=== PATIENT | male | born 1975 | race Caucasian/White ===

== ENCOUNTER 2018-03-15 02:28 | Emergency (ER) | payer OTHER ==
[2018-03-15] MEDS: ARIPIPRAZOLE 5 MG TAB PO (04:39)
== END 2018-03-15 04:46 | disposition home or self-care (01) ==
LOC: E/R 02:28
DX: T76.11XA Adult physical abuse, suspected, initial encounter (principal); R40.2142 Coma scale, eyes open, spontaneous, at arrival to emergency department; R40.2252 Coma scale, best verbal response, oriented, at arrival to emergency department; R40.2362 Coma scale, best motor response, obeys commands, at arrival to emergency department; Z87.891 Personal history of nicotine dependence
CPT/HCPCS: 99283

== ENCOUNTER 2018-07-07 05:45 | Emergency (ER) | payer MEDICARE, MEDICAID, OTHER ==
[2018-07-07] MEDS: LORAZEPAM 1 MG TAB PO (06:45)
== END 2018-07-07 07:25 | disposition home or self-care (01) ==
LOC: E/R 05:45
DX: F41.9 Anxiety disorder, unspecified (principal); R40.2142 Coma scale, eyes open, spontaneous, at arrival to emergency department; R40.2242 Coma scale, best verbal response, confused conversation, at arrival to emergency department; R40.2362 Coma scale, best motor response, obeys commands, at arrival to emergency department
CPT/HCPCS: 99283